=== PATIENT | female | born 1995 | race African-American/Black ===

== ENCOUNTER 2017-09-09 20:32 | Emergency (ER) | payer OTHER, MEDICAID, SELFPAY ==
[2017-09-09 20:35] VITALS: BP 143/80; PULSE 92; RESP 16; TEMP 36.6; O2SAT 97; BMI 41.3
--- NOTE | 2017-09-09 20:53 | ED.VISSUMM ---
- ER Visit Summary Date of Service: 09/09/17 Chief Complaint: Left knee pain History of Present Illness: The patient is a 22 F presenting with left knee pain. Patient states it started 2 weeks ago. She does not recall a specific injury. She has had persistent pain in her left knee. She has been able to ambulate with pain. She tried ibuprofen one time with no relief. She does not currently have a family physician. Denies fever chills or other complaints. Physical Examination: Vitals are stable. Patient is afebrile. Alert no acute distress. HEENT exam is unremarkable. Lungs are clear and equal bilaterally. Heart is regular rate and rhythm. Extremities mild anterior left knee tenderness. No erythema or warmth. Active full range of motion. Normal distal pulses. No calf tenderness. Skin is warm and dry. No focal neurologic deficit. Remainder of exam is unremarkable. Emergency Department Course and Treatment: Patient was given Toradol IM. X-ray left knee shows joint effusion. She is advised to ice and elevate. She is given a prescription for naproxen. She declines crutches. Advised to follow-up with Dr. Ponce job service consultant for no doc. Advised return to ED for worsening complaints. Disposition: Discharge home Impression: Left knee pain This note was generated with [employer] dictation software. It may contain incorrect words, spelling, and punctuation that were not noted in review of the chart prior to signing ED Disposition - Plan for ED Patient: Chief Complaint: Lower Extremity Injury Instructions: ED Knee Pain [facility] Prescriptions: Naproxen [Naprosyn] 500 mg PO BID PRN #20 tablet Referrals: Yolanda Ponce MD [STAFF PHYSICIAN] - Care Physician,No Primary [Primary Care Provider] -
--- NOTE | 2017-09-09 20:56 | ED.DCSUM_ITS ---
- ER Visit Summary Date of Service: 09/09/17 Chief Complaint: Left knee pain History of Present Illness: The patient is a 22 F presenting with left knee pain. Patient states it started 2 weeks ago. She does not recall a specific injury. She has had persistent pain in her left knee. She has been able to ambulate with pain. She tried ibuprofen one time with no relief. She does not currently have a family physician. Denies fever chills or other complaints. Physical Examination: Vitals are stable. Patient is afebrile. Alert no acute distress. HEENT exam is unremarkable. Lungs are clear and equal bilaterally. Heart is regular rate and rhythm. Extremities mild anterior left knee tenderness. No erythema or warmth. Active full range of motion. Normal distal pulses. No calf tenderness. Skin is warm and dry. No focal neurologic deficit. Remainder of exam is unremarkable. Emergency Department Course and Treatment: Patient was given Toradol IM. X-ray left knee shows joint effusion. She is advised to ice and elevate. She is given a prescription for naproxen. She declines crutches. Advised to follow- up with Dr. Ponce honing machine operator production for no doc. Advised return to ED for worsening complaints. Disposition: Discharge home Impression: Left knee pain This note was generated with [employer] dictation software. It may contain incorrect words, spelling, and punctuation that were not noted in review of the chart prior to signing ED Disposition - Plan for ED Patient: Chief Complaint: Lower Extremity Injury Instructions: ED Knee Pain [facility] Prescriptions: Naproxen [Naprosyn] 500 mg PO BID PRN #20 tablet Referrals: Yolanda Ponce MD [STAFF PHYSICIAN] - Care Physician,No Primary [Primary Care Provider] -
--- NOTE | 2017-09-09 20:56 | ED.DEP ---
ED Disposition - Plan for ED Patient: Chief Complaint: Lower Extremity Injury Instructions: ED Knee Pain [facility] Prescriptions: Naproxen [Naprosyn] 500 mg PO BID PRN #20 tablet Referrals: Care Physician,No Primary [Primary Care Provider] - Yolanda Ponce MD [STAFF PHYSICIAN] -
[2017-09-09] MEDS: Ketorolac 60 MG/2 ML Vial IM (21:04)
--- NOTE | 2017-09-09 21:10 | RAD_ITS ---
STUDY: X-RAY - LEFT KNEE REASON FOR EXAM: Female, 22 years old. Pain TECHNIQUE: 4 view(s) of the knee. COMPARISON: None. FINDINGS: Normal visualized distal femur. Normal visualized proximal tibia and fibula. Normal proximal tibiofibular articulation. Normal medial femorotibial compartment. Normal lateral femorotibial compartment. Normal patellofemoral articulation. There is a joint effusion. RAD/Knee 4 or More Views IMPRESSION: Joint effusion Electronically Signed: Rob Ruffin MD at 21:21 EDT Tel , Service support ,
== END 2017-09-09 21:40 | disposition home or self-care (01) ==
PROVIDERS: Emergency Provider Emergency Medicine
DX: M25.562 Pain in left knee (principal); M25.462 Effusion, left knee
CPT/HCPCS: 73564; 96372; 99282

== ENCOUNTER 2018-06-20 02:26 | Emergency (ER) | payer OTHER, SELFPAY ==
[2018-06-20 02:27] VITALS: BP 154/70; BP 157/87; PULSE 107; PULSE 84; RESP 16; RESP 18; TEMP 36.4; TEMP 36.6; O2SAT 96; O2SAT 97; BMI 41.3
--- NOTE | 2018-06-20 02:27 | ED.RN ---
NO OLD EKGS IN MUSE
--- NOTE | 2018-06-20 03:00 | RAD_ITS ---
HISTORY: CHEST PAIN SINCE 1AM RADIATING DOWN R ARM, SOB. EXAM: XR Chest 2 Views: COMPARISON: None FINDINGS: EKG leads in place. Normal heart size. Both lungs appear clear. No infiltrate or pleural effusion. No pneumothorax. The bony thorax appears intact. IMPRESSION: Normal chest. at [id number] Reported and signed by: Diego Mendieta MD Electronically Signed: Diego Mendieta, at 4:46 EST Tel , Service support , RAD/Chest PA and Lateral
[2018-06-20] MEDS: Naproxen 500 MG Tablet PO (03:09)
--- NOTE | 2018-06-20 03:18 | EKG12_ITS ---
Test Reason : CP Blood Pressure : / mmHG Vent. Rate : 087 BPM Atrial Rate : 087 BPM P-R Int : 112 ms QRS Dur : 078 ms QT Int : 380 ms P-R-T Axes : 038 035 022 degrees QTc Int : 457 ms Normal sinus rhythm with sinus arrhythmia Normal ECG Confirmed by HARSHIL MAHER, MAURICIO ([id number]), online content editor MANJULA SHAIKH ([id number]) on 06/21/2018 9:37:05 AM Referred By: JHON Confirmed By:MAURICIO CHUA MD
[2018-06-20 04:39] VITALS: BP 128/67; PULSE 63; RESP 16; O2SAT 100
--- NOTE | 2018-06-20 04:54 | ED.VISSUMM ---
- ER Visit Summary Date of Service: 06/20/18 Chief Complaint: Right arm pain History of Present Illness: The patient is a 22 F who presents with right arm pain. This began about an hour and a half ago. She complains of pain on the right side of the neck radiating down into her shoulder and all the way down her arm to her fingers. She also felt short of breath when she laid flat. However she states that this may have just been related to anxiety and has now resolved. She did not take any medications because she states she is trying to avoid [id number] pain medication. No fevers. No vomiting. No history of prior similar symptoms. No paresthesias. No weakness. Chest pain. No extremity pain or swelling. Physical Examination: Afebrile heart rate 107 initially, heart rate is 65 at the time of my physical vitals otherwise unremarkable Patient has right paraspinal cervical tenderness and right posterior shoulder tenderness she has active full range of motion of the shoulder elbow and wrist without pain she has normal sensation to light touch she has an easily radial pulse. Next line heart regular rate and rhythm Lungs are clear Abdomen soft Test Results: EKG shows sinus rhythm at a rate of 87. Chest x-ray is normal. Emergency Department Course and Treatment: Patient was given naproxen. I believe this patient's symptoms are most likely related to a cervical radiculopathy given her complaint of pain from the neck all the way down to the fingers. She had no chest pain and EKG is normal. She was advised on supportive care. She understands to return for new or worsening symptoms. Patient discharged. Treatment Plan: [] Disposition: Discharge Impression: Cervical radiculopathy This note was generated with [employer] dictation software. It may contain incorrect words, spelling, and punctuation that were not noted in review of the chart prior to signing ED Disposition - Plan for ED Patient: Chief Complaint: Chest Pain Referrals: Care Physician,No Primary [Primary Care Provider] -
--- NOTE | 2018-06-20 04:57 | ED.DCSUM_ITS ---
- ER Visit Summary Date of Service: 06/20/18 Chief Complaint: Right arm pain History of Present Illness: The patient is a 22 F who presents with right arm pain. This began about an hour and a half ago. She complains of pain on the right side of the neck radiating down into her shoulder and all the way down her arm to her fingers. She also felt short of breath when she laid flat. However she states that this may have just been related to anxiety and has now resolved. She did not take any medications because she states she is trying to avoid [id number] pain medication. No fevers. No vomiting. No history of prior similar symptoms. No paresthesias. No weakness. Chest pain. No extremi ty pain or swelling. Physical Examination: Afebrile heart rate 107 initially, heart rate is 65 at the time of my physical vitals otherwise unremarkable Patient has right paraspinal cervical tenderness and right posterior shoulder tenderness she has active full range of motion of the shoulder elbow and wrist without pain she has normal sensation to light touch she has an easily radial pulse. Next line heart regular rate and rhythm Lungs are clear Abdomen soft Test Results: EKG shows sinus rhythm at a rate of 87. Chest x-ray is normal. Emergency Department Course and Treatment: Patient was given naproxen. I believe this patient's symptoms are most likely related to a cervical radiculopathy given her complaint of pain from the neck all the way down to the fingers. She had no chest pain and EKG is normal. She was advised on supportive care. She understands to return for new or worsening symptoms. Patient discharged. Treatment Plan: [] Disposition: Discharge Impression: Cervical radiculopathy This note was generated with [employer] dictation software. It may contain incorrect words, spelling, and punctuation that were not noted in review of the chart prior to signing ED Disposition - Plan for ED Patient: Chief Complaint: Chest Pain Referrals: Care Physician,No Primary [Primary Care Provider] -
--- NOTE | 2018-06-20 04:57 | ED.DEP ---
ED Disposition - Plan for ED Patient: Chief Complaint: Chest Pain Instructions: ED Cervical Radiculopathy Referrals: Care Physician,No Primary [Primary Care Provider] -
[2018-06-20 05:02] VITALS: BP 136/75; PULSE 65; RESP 16; O2SAT 98
== END 2018-06-20 05:06 | disposition home or self-care (01) ==
LOC: ED 02:53
PROVIDERS: Emergency Provider Emergency Medicine
DX: M54.12 Radiculopathy, cervical region (principal)
CPT/HCPCS: 71046; 93005; 99284; A4216